=== PATIENT | female | born 1980 | race Caucasian/White ===

== ENCOUNTER 2016-11-03 11:49 | Emergency (ER) | payer BC, OTHER ==
[2016-11-03] MEDS ORDERED: Sodium Chloride 0.9% 10 ML Syringe FLUSH PRN (12:43)
[2016-11-03] MEDS ORDERED: Sodium Chloride 0.9% 1,000 ML IV ONE ×2 (12:44→16:37)
[2016-11-03] MEDS ORDERED: Alum Hydrox/Mag Hydrox/Simeth 30 ML, Lidocaine 2% 15 ML PO ONE ×2 (12:44)
--- NOTE | 2016-11-03 12:48 | EDM.PDOC ---
ED HPI GENERAL MEDICAL PROBLEM - General Chief Complaint: Abdominal Pain Stated Complaint: ABDOMINAL PAIN Time Seen by Provider: 11/03/16 12:36 Source of Information: Reports: Patient History Limitations: Reports: No Limitations - History of Present Illness INITIAL COMMENTS - FREE TEXT/NARRATIVE: 36-year-old female presents for evaluation treatment of epigastric pain. Patient reports that the epigastric pain started about 1 month ago. She has been seeing her primary care provider who started her on Carafate. She states she has been taking this as prescribed for the last 3 weeks but has not noticed any improvement in her symptoms. No testing was done. Primary care instructed her that if she did not improve on the Carafate she may need a scope. Patient is currently complaining of epigastric pain radiating into her lower abdomen. No radiation to the back. She also reports associated symptoms of nausea, vomiting and diarrhea. She had has not taken her temperature and does not feel she's had any fevers. She reports vomiting daily about 1-3 times a day. She also reports 6 or 7 episodes of diarrhea per day. Reports the stool contains mucus. Denies any blood in the stool. She denies any blood in her stool. Reports that she had an episode hematemesis yesterday. Reports her is about a "nickel-sized" amount of blood in her emesis. Patient describes the pain as a sharp constant pain and rates it as a 10 out of 10. Reports anything she eats or drinks makes the pain worse. She only had water to drink last night. Reports the pain has been constant for the last month. She denies any recent antibiotics. She denies any recent travel. She denies any ill contacts. She denies any surgeries to her abdomen. Patient has an IUD in place. Patient reports she is bipolar and has not taken her medications in several weeks due to the pain. Middle Abdomen Pain Score (Numeric/FACES): 8 - Related Data Allergies Allergy/AdvReac Type Severity Reaction Status Date / Time No Known Allergies Allergy Verified 11/03/16 12:14 Home Meds: Home Meds ARIPiprazole [Abilify] 15 mg PO DAILY 11/03/16 [History] Acetaminophen/oxyCODONE [Percocet 325-5 MG] 1 tab PO Q4H PRN #20 tablet [Rx] ClonazePAM [KlonoPIN] 1 mg PO TID PRN 11/03/16 [History] Nitrofurantoin [place]/Macrocryst [Macrobid] 100 mg PO BID #10 cap 11/03/16 [Rx] Ondansetron [Zofran ODT] 4 mg PO Q8H PRN #12 tab.dis 11/03/16 [Rx] Sucralfate [Carafate] 1 gm PO QID 11/03/16 [History] Past Medical History Other OB/BYN History: x2 Psychiatric History: Reports: Bipolar Social & Family History - Tobacco Use Smoking Status *Q: Never Smoker Years of Tobacco use: 10 - Caffeine Use Caffeine Use: Reports: None - Recreational Drug Use Recreational Drug Use: No ED ROS GENERAL - Review of Systems Review Of Systems: See Below Constitutional: Reports: Decreased Appetite. Denies: Fever Respiratory: Denies: Shortness of Breath Cardiovascular: Denies: Chest Pain GI/Abdominal: Reports: Abdominal Pain (epigastric altman), Diarrhea, Hematemesis ( x1 episode today; blood tinged ), Nausea, Vomiting. Denies: Hematochezia, Melena : Denies: Dysuria, Hematuria Musculoskeletal: Denies: Back Pain ED EXAM, GI/ABD - Physical Exam Exam: See Below Exam Limited By: No Limitations General Appearance: Alert, WD/WN, No Apparent Distress Respiratory/Chest: No Respiratory Distress, Lungs Clear, Normal Breath Sounds Cardiovascular: Normal Peripheral Pulses, Regular Rate, Rhythm, No Murmur GI/Abdominal: Normal Bowel Sounds, Soft, Tenderness (greatest in the epigstric area but located throughout her abdomen). No: Distention, Guarding, Rebound, Rigidity, Hepatomegaly, Vasquez's Sign Neurological: Alert, Oriented, Normal Cognition Psychiatric: Normal Mood, Flat Affect Skin Exam: Warm, Dry, Normal Color Course - Vital Signs Last Recorded V/S: Last Vital Signs Temp 36.3 C 11/03/16 12:11 Pulse 66 11/03/16 18:20 Resp 18 11/03/16 13:30 BP 96/52 L 11/03/16 18:20 Pulse Ox 96 11/03/16 18:20 - Orders/Labs/Meds Orders: Active Orders 24 hr Category Date Time Status Peripheral IV Care [RC] . DIRECTED Care 11/03/16 12:43 Active Peripheral IV Insertion Adult [OM.PC] Routine Oth 11/03/16 12:43 Ordered Labs: Laboratory Tests 11/03/16 11/03/16 11/03/16 Range/Units 12:35 12:35 13:30 WBC 6.91 (3.98-10.04) K/mm3 RBC 5.07 (3.98-5.22) M/mm3 Hgb 15.0 (11.2-15.7) gm/L Hct 44.8 (34.1-44.9) % MCV 88.4 (79.4-94.8) fl MCH 29.6 (25.6-32.2) pg MCHC 33.5 (32.2-35.5) g/dl RDW Std Deviation 41.5 (36.4-46.3) fL Plt Count 284 (182-369) K/mm3 MPV 10.6 (9.4-12.3) fl Neut % (Auto) 54.0 (34.0-71.1) % Lymph % (Auto) 33.6 (19.3-51.7) % Republic % (Auto) 9.3 (4.7-12.5) % Eos % (Auto) 2.7 (0.7-5.8) Baso % (Auto) 0.3 (0.1-1.2) % Neut # (Auto) 3.73 (1.56-6.13) K/mm3 Lymph # (Auto) 2.32 (1.18-3.74) K/mm3 Republic # (Auto) 0.64 H (0.24-0.36) K/mm3 Eos # (Auto) 0.19 (0.04-0.36) K/mm3 Baso # (Auto) 0.02 (0.01-0.08) K/mm3 Sodium 141 (136-145) mEq/L Potassium 3.4 L (3.5-5.1) mEq/L Chloride 104 (98-107) mEq/L Carbon Dioxide 27 (21-32) mEq/L Anion Gap 13.4 (5-15) BUN 8 (7-18) mg/dL Creatinine 0.9 (0.55-1.02) mg/dL Est Cr Clr Drug Dosing 78.51 mL/min Estimated GFR (MDRD) > 60 (>60) mL/min BUN/Creatinine Ratio 8.9 L (14-18) Glucose 90 (74-106) mg/dL Calcium 9.0 (8.5-10.1) mg/dL Total Bilirubin 0.7 (0.2-1.0) mg/dL GGT 38 (5-55) U/L AST 14 L (15-37) U/L ALT 36 (14-59) U/L Alkaline Phosphatase 70 (46-116) U/L Total Protein 7.9 (6.4-8.2) g/dl Albumin 4.2 (3.4-5.0) g/dl Globulin 3.7 gm/dL Albumin/Globulin Ratio 1.1 (1-2) Lipase 55 L (73-393) U/L Urine Color Yellow (Yellow) Urine Appearance Slt cloudy H (Clear) Urine pH 6.0 (5.0-8.0) Ur Specific [place] 1.025 (1.005-1.030) Urine Protein Negative (Negative) Urine Glucose (UA) Negative (Negative) Urine Ketones 1+ H (Negative) Urine Occult Blood 1+ H (Negative) Urine Nitrite Negative (Negative) Urine Bilirubin Negative (Negative) Urine Urobilinogen 0.2 (0.2-1.0) Ur Leukocyte Esterase Trace H (Negative) Urine RBC 0-5 (0-5) /hpf Urine WBC 5-10 H (0-5) /hpf Ur Epithelial Cells 40-50 H (0-5) /hpf Amorphous Sediment Moderate H (NOT SEEN) /hpf Urine Bacteria Moderate H (FEW) /hpf Urine Mucus Few (FEW) /hpf Urine HCG, Qual (NEGATIVE) 11/03/16 Range/Units 13:30 WBC (3.98-10.04) K/mm3 RBC (3.98-5.22) M/mm3 Hgb (11.2-15.7) gm/L Hct (34.1-44.9) % MCV (79.4-94.8) fl MCH (25.6-32.2) pg MCHC (32.2-35.5) g/dl RDW Std Deviation (36.4-46.3) fL Plt Count (182-369) K/mm3 MPV (9.4-12.3) fl Neut % (Auto) (34.0-71.1) % Lymph % (Auto) (19.3-51.7) % Republic % (Auto) (4.7-12.5) % Eos % (Auto) (0.7-5.8) Baso % (Auto) (0.1-1.2) % Neut # (Auto) (1.56-6.13) K/mm3 Lymph # (Auto) (1.18-3.74) K/mm3 [place] # (Auto) (0.24-0.36) K/mm3 Eos # (Auto) (0.04-0.36) K/mm3 Baso # (Auto) (0.01-0.08) K/mm3 Sodium (136-145) mEq/L Potassium (3.5-5.1) mEq/L Chloride (98-107) mEq/L Carbon Dioxide (21-32) mEq/L Anion Gap (5-15) BUN (7-18) mg/dL Creatinine (0.55-1.02) mg/dL Est Cr Clr Drug Dosing mL/min Estimated GFR (MDRD) (>60) mL/min BUN/Creatinine Ratio (14-18) Glucose (74-106) mg/dL Calcium (8.5-10.1) mg/dL Total Bilirubin (0.2-1.0) mg/dL GGT (5-55) U/L AST (15-37) U/L ALT (14-59) U/L Alkaline Phosphatase (46-116) U/L Total Protein (6.4-8.2) g/dl Albumin (3.4-5.0) g/dl Globulin gm/dL Albumin/Globulin Ratio (1-2) Lipase (73-393) U/L Urine Color (Yellow) Urine Appearance (Clear) Urine pH (5.0-8.0) Ur Specific [place] (1.005-1.030) Urine Protein (Negative) Urine Glucose (UA) (Negative) Urine Ketones (Negative) Urine Occult Blood (Negative) Urine Nitrite (Negative) Urine Bilirubin (Negative) Urine Urobilinogen (0.2-1.0) Ur Leukocyte Esterase (Negative) Urine RBC (0-5) /hpf Urine WBC (0-5) /hpf Ur Epithelial Cells (0-5) /hpf Amorphous Sediment (NOT SEEN) /hpf Urine Bacteria (FEW) /hpf Urine Mucus (FEW) /hpf Urine HCG, Qual Negative (NEGATIVE) Meds: Medications Discontinued Medications Generic Name Dose Route Start Last Admin Trade Name Meryl PRN Reason Stop Dose Admin Al Hydroxide/Mg Hydroxide 30 0 ml 11/03/16 12:44 11/03/16 13:13 ml/ Lidocaine HCl 15 ml PO 11/03/16 12:45 45 ml ONETIME ONE Administration Famotidine 20 mg 11/03/16 16:00 11/03/16 16:08 Pepcid IVPUSH 11/03/16 16:01 20 mg ONETIME ONE Administration Fentanyl 50 mcg 11/03/16 16:37 Sublimaze IVPUSH 11/03/16 16:38 ONETIME ONE Hydromorphone HCl 1 mg 11/03/16 14:26 11/03/16 14:44 Dilaudid IVPUSH 11/03/16 14:27 1 mg ONETIME ONE Administration Sodium Chloride 1,000 mls @ 999 mls/hr 11/03/16 12:44 11/03/16 13:10 Normal Saline IV 11/03/16 13:44 999 mls/hr ONETIME ONE Administration Sodium Chloride 1,000 mls @ 999 mls/hr 11/03/16 16:37 11/03/16 17:07 Normal Saline IV 11/03/16 17:37 999 mls/hr ONETIME ONE Administration Ketorolac Tromethamine 30 mg 11/03/16 13:39 11/03/16 13:49 Toradol IVPUSH 11/03/16 13:40 30 mg ONETIME ONE Administration Lorazepam 1 mg 11/03/16 15:58 11/03/16 16:12 Ativan IVPUSH 11/03/16 15:59 1 mg ONETIME ONE Administration Ondansetron HCl 4 mg 11/03/16 13:14 11/03/16 13:16 Zofran IVPUSH 11/03/16 13:15 4 mg ONETIME ONE Administration Ondansetron HCl 4 mg 11/03/16 13:39 11/03/16 13:54 Zofran IVPUSH 11/03/16 13:40 4 mg ONETIME ONE Administration Oxycodone/Acetaminophen 1 tab 11/03/16 16:55 11/03/16 17:07 Percocet 325-5 Mg PO 11/03/16 16:56 1 tab ONETIME ONE Administration Sodium Chloride 10 ml 11/03/16 12:43 11/03/16 13:22 Saline Flush FLUSH 10 ml ASDIRECTED PRN Administration Keep Vein Open - Radiology Interpretation Free Text/Narrative:: flat and upright xrays reviewed by myself and Dr. Roldan. No free air. Few normal appearing air fluid lines. RUQ abd ultrasound impression per Dr. García: 1. Nonvisualized pancrease due to bowel gas. 2. Other portions of the RUQ abd ultrasound are unremarkable. - Re-Assessments/Exams Free Text/Narrative Re-Assessment/Exam: 11/03/16 14:04 Labs returned. WBC normal at 6.91, hgb 15.0 and plts are 284 Sodium is 141, potassium is 3.4 and chloride is 104. anion gap is 13.4 glucose is 90. lipase is 55 total bili is 0.7, AST14, ALT is 36 and alk phos is 70. GGt is 38. continues to have pain despite GI cocktail. Will give zofran, toradol IV. 11/03/16 14:33 Continues to have pain. No relief with the IV toradol and GI cocktail. Continue to have nausea. No vomiting since entering the ER. No obvious distress. Complains pain is a 10 out of 10. Dilaudid 1mg IV ordered. 11/03/16 15:59 Continues to have pain despite 1mg IV Dilaudid. Pain is a 10/10. Will try IV pepcid and ativan for additional pain relief. 11/03/16 16:55 Reviewed xray and ultrasound results. I called bronzer surgery Dr. Deedee carlson. Reports she had a CT done in 2014. Liver hemangiomas which have sine been ruled benign. [place] we could get a CT and maybe schedule a HIDA scan. Patient reports pain continues to be a 10 out of 10 despite Dilaudid, GI cocktail, toradol and zofran. She is not in any obvious distress. She is tearful. Abdomen re examined. Abdomen is soft. Generalized mild tenderness to palpation. I discussed my conversation with Dr. Deedee Carlson with the patient. I can offer her a CT scan which would help rule out any additional etiologies. Previous CT of the abdomen and pelvis done in 2014 showed liver hemangiomas. At this point the etiology of her abdominal pain is not clear possibilities include gastritis, ulcer or gallbladder dysfunction. It is possible she may have C.diff casing the pain. we discussed proceeding with a CT. Given normal labs and an unremarkable physical exam I do not feel the CT provide the answer. However, I am concerned that her pain has not subsided despite multiple different medications. She decided to proceed with the CT. 11/03/16 17:30 mechanical facilities technician reported that she now has cost concerns about the CT. It was my understanding that she currently has insurance. She now informs me that she is in the process of getting insurance. We discussed that the CT out of pocket is approximately $2200. Given her pain not responding to multiple medications I feel a CT would be a good next step, however, she has also had pain for the last month. Deferring the CT until she has insurance is also appropriate. She decided to forgo the CT today. Inquires about stool studies. Stool studies are also expensive. She has not had any vomiting or diarrhea since entering the ER. Will deferr these as well. 11/03/16 18:33 Pain is currently a 8 out of 10. She has asked for crackers and a snack and has eaten without vomiting. I will discharge her home. I will have her follow-up with her PCP. They can preform furthe testing such as a CT, stool studies, a HIDA scan or endoscopy if needed. Discharge instructions as documented. Departure - Departure Time of Disposition: 18:33 Disposition: Home, Self-Care 01 Clinical Impression: Epigastric pain, Abdominal pain - Discharge Information Prescriptions: Acetaminophen/oxyCODONE [Percocet 325-5 MG] 1 tab PO Q4H PRN #20 tablet PRN Reason: Pain (Severe 7-10) Nitrofurantoin [place]/Macrocryst [Macrobid] 100 mg PO BID #10 cap Ondansetron [Zofran ODT] 4 mg PO Q8H PRN #12 tab.dis PRN Reason: Nausea Referrals: Anh Smith, [facility] [Primary Care Provider] - Forms: ED Department Discharge Additional Instructions: Continue on the Carafate. If you are not already doing so recommend you take a proton pump such as Prilosec twice a day. you were given medication the ER that can affect your ability to drive and operate machinery. No driving or operating machine within 12 hours of taking prescription narcotic pain medication. Zofran 1 tab sublingual every 8 hours as needed for nausea. Macrobid 1 tablet twice a day for 5 days. This is for urinary tract infection. Recommend you start a probiotic. Follow-up with your primary care provider this week for a recheck of your symptoms. If your symptoms persist you may require further testing such as an upper endoscopy or a HIDA scan. I also recommend you discussed with your primary care provider a CT scan and stool studies if needed. Please return to the ER if your symptoms change or worsen. - My Orders Last 24 Hours: My Active Orders 11/03/16 12:43 Peripheral IV Care [RC] . DIRECTED Peripheral IV Insertion Adult [OM.PC] Routine - Assessment/Plan Last 24 Hours: My Active Orders 11/03/16 12:43 Peripheral IV Care [RC] . DIRECTED Peripheral IV Insertion Adult [OM.PC] Routine
[2016-11-03] MEDS ORDERED: Ondansetron 4 MG/2 ML SDV IVPUSH ONE ×2 (13:14→13:39)
[2016-11-03] MEDS ORDERED: Ketorolac 30 MG/ML SDV IVPUSH ONE (13:39)
[2016-11-03] MEDS ORDERED: HYDROmorphone 1 MG/ML Syringe IVPUSH ONE (14:26)
[2016-11-03] MEDS ORDERED: LORazepam 2 MG/ML MDV IVPUSH ONE (15:58)
[2016-11-03] MEDS ORDERED: Famotidine 20 MG/2 ML SDV IVPUSH ONE (16:00)
--- NOTE | 2016-11-03 16:10 | US ---
Limited abdominal ultrasound: Multiple real-time images of the upper right abdomen were obtained. Liver shows no focal parenchymal abnormality. Gallbladder shows no gallstones. No gallbladder wall thickening or biliary duct dilatation is seen. Right kidney shows no hydronephrosis or mass. Pancreas is poorly seen due to bowel gas. Measurements: Right kidney length: 10.2 cm Impression: 1. Nonvisualized pancreas due to bowel gas. 2. Other portions of the right upper quadrant abdominal ultrasound are unremarkable. Diagnostic code #2
[2016-11-03] MEDS ORDERED: fentaNYL 100 MCG/2 ML SDV IVPUSH ONE (16:37)
[2016-11-03] MEDS ORDERED: Acetaminophen/oxyCODONE 325-5 MG Tab PO ONE (16:55)
[2016-11-03 18:35] VITALS: BP 96/52
--- NOTE | 2016-11-04 08:41 | CR ---
Abdomen: Supine and upright views of the abdomen were obtained. Comparison: No previous study. Bowel gas pattern appears normal. Several air-fluid levels seen within small bowel which can be seen normally. No free air is seen. Minimal scoliosis is noted. Previous IUD is noted. No abnormal calcifications or soft tissue abnormality is seen. Impression: 1. Incidental findings. Nothing acute is seen on two-view abdominal x-ray. Diagnostic code #1
== END 2016-11-03 18:30 | disposition home or self-care (01) ==
LOC: JD.ED 11:49
DX: R10.13 Epigastric pain (principal); F32.9 Major depressive disorder, single episode, unspecified; Z79.899 Other long term (current) drug therapy
CPT/HCPCS: 36415; 74020; 76705; 80053; 81001; 81025; 82977; 83690; 85025; 96361; 96374; 96375; 96376; 99285; A9270; J1170; J1885; J2060; J2405; J7040; J7050; 99283